=== PATIENT | male | born 1990 | race Caucasian/White ===

== ENCOUNTER → 2019-12-22 | Day surgery (SDC) | payer OTHER ==
[~2019-12-22] MED LIST: PROTONIX40 M1 PO; ROXICODONE5 M2 PO
--- NOTE | 2020-01-16 09:36 | OP ---
[address] [address] OPERATIVE REPORT Name: TUNG CRUZ Room: [facility].#: [id number] Admission: 12/22/19 Attend Phys: Duane Latham DO Discharge: Date of : 89 Report #: [id number] THIS REPORT FOR: //name// cc: MECCA Bustillos family physician/PCP MECCA Bustillos family physician/PCP ~ THIS REPORT FOR: //name// CC: Duane WING physician/PCP DATE OF SERVICE: 12/22/2019 PREOPERATIVE DIAGNOSIS: Ventral hernia. POSTOPERATIVE DIAGNOSIS: Ventral hernia. PROCEDURE: Alfredo robotic-assisted laparoscopic ventral hernia repair with [address] mesh. SURGEON: Duane Latham DO. AUTOMOTIVE TIRE WORKER: Rashaun Hopson DO, PGY1, resident. ANESTHESIA: General endotracheal and TAP blocks. ESTIMATED BLOOD LOSS: 20 mL. COMPLICATIONS: None. DESCRIPTION OF PROCEDURE: After obtaining proper consents and discussing risks and complications with the patient, he was taken to the operating room, laid in the supine position and administered general endotracheal anesthetic. He was then prepped and draped in the usual sterile fashion. A timeout was performed. We confirmed the appropriate patient and procedure. Preoperative antibiotics had been given. SCDs were in place. We then made a small right upper quadrant skin incision. This was carried down through the skin into the subcutaneous tissue using electrocautery for hemostasis. Once within the subcutaneous tissue, we then used a 12 mm Visiport and a 0 degree Doroteo camera to enter the peritoneal cavity. Once within the peritoneal cavity, insufflation was begun. Once insufflation was complete, full visual inspection of the anterior abdominal organs was performed. We then placed 2 more Da Alfredo robotic ports. These were placed in the right flank and also at the level of the ASIS. We then docked the da Alfredo robot. Once the robot was docked, I inserted monopolar scissors in the right lower quadrant and bipolar fenestrated grasper in the left upper quadrant. I then broke scrub and went on console. Once on console, I was able to reduce the omental fat out of the umbilical hernia defect without [place] [address] OPERATIVE REPORT Name: ANTHONYTUNG Room: [facility].#: [id number] Admission: 12/22/19 Attend Phys: Duane Ltaham, Discharge: Date of : 89 Report #: [id number] bedside delivery assistant did use some manual palpation in order to reduce the omental fat. We then decreased the abdominal pressure down 10 and I then measured the hernia defect prior to decreasing the pressure. The defect was about 2 cm in diameter. We decreased the pressure and then closed the hernia defect incorporating the hernia sac into the closure using a 0 absorbable V-Loc suture. We then placed an [address] mesh into the peritoneal cavity. This was held up against the abdominal wall and then sutured in 360 degrees around the defect using 2-0 absorbable V-Loc suture. Once this was all complete, the needles were removed. I then rescrubbed and undocked the robot. Once the robot was undocked, the ports were all removed under direct vision. We then closed all of the incisions using 4-0 Monocryl subcuticular stitches and Dermabond. The patient was then awakened in the operating room and transported to recovery room in stable condition. Sponge, needle and instrument counts were all correct at the end of the procedure. <ELECTRONICALLY SIGNED> By: Duane Latham DO 01/16/20 0936 [id number] [id number] Latham DO /nt
== END | disposition home or self-care (01) ==
LOC: M.SUR 06:41
PROVIDERS: ATTEND Surgery
DX: K43.9 Ventral hernia without obstruction or gangrene (principal); Z11.59 Encounter for screening for other viral diseases; Z79.899 Other long term (current) drug therapy